=== PATIENT | male | born 1960 | race Caucasian/White ===

== ENCOUNTER 2017-04-13 00:05 | Inpatient (IN) | payer MEDICAID, OTHER ==
[~2017-04-13] VITALS: Ht 175.3 cm; Wt 94.2 kg
[2017-04-13] VITALS (18 sets, daily range): BP systolic 108–125; BP diastolic 64–74; PULSE 78–100; RESP 15–20; TEMP 100.5; Ht 175.3 cm; Wt 94.2 kg
[2017-04-13] MEDS ORDERED: HYDROmorphONE 1 MG/ML SYG IV STA (01:18)
[2017-04-13] MEDS ORDERED: ONDANSETRON 4 MG INJ IV STA (01:18)
[2017-04-13] MEDS ORDERED: SOD CHLORIDE 0.9% 1,000 ML IV STA (01:18)
[2017-04-13 01:36] LABS: BASOPHILS % 0.2 % (0.0-2.0); HEMATOCRIT 47.6 % (42.0-52.0); HEMOGLOBIN 15.6 g/dl (14.0-18.0); LYMPHOCYTES # 0.8 10^3/ul (0.8-2.9); LYMPHOCYTES % 6.2 % (15.0-51.0); MEAN CORPUSCULAR HEMOGLOBIN 28.1 pg (29.0-33.0); MEAN CORPUSCULAR HGB CONC 32.8 g/dl (32.0-37.0); MEAN CORPUSCULAR VOLUME 85.8 fl (82.0-101.0); MEAN PLATELET VOLUME 10.7 fl (7.4-10.4); MONOCYTE # 0.6 10^3/ul (0.3-0.9); MONOCYTES % 4.8 % (0.0-11.0); NEUTROPHIL # 11.3 10^3/ul (1.6-7.5); NEUTROPHILS % 88.3 % (39.0-77.0); PLATELET COUNT 254 10^3/UL (140-415); RED BLOOD COUNT 5.55 10^6/ul (4.70-6.10); RED CELL DISTRIBUTION WIDTH 13.3 % (11.5-14.5); WHITE BLOOD COUNT 12.8 10^3/ul (4.8-10.8)
[2017-04-13 01:52] LABS: ALBUMIN 4.6 g/dl (3.3-4.9); ALBUMIN/GLOBULIN RATIO 1.06; BILIRUBIN,INDIRECT 1.8 mg/dl (0-1.1); BILIRUBIN,TOTAL 1.8 mg/dl (0.2-1.3); CALCIUM 9.5 mg/dl (8.4-10.2); CREATININE 0.97 mg/dl (0.61-1.24); POTASSIUM 4.4 mmol/L (3.5-5.1); TOTAL PROTEIN 8.9 g/dl (6.1-8.1)
[2017-04-13 02:08] LABS: ADD UMIC YES; UR ASCORBIC ACID NEGATIVE (NEGATIVE); UR BACTERIA FEW /HPF (NONE SEEN); UR BILIRUBIN (Dip) NEGATIVE (NEGATIVE); UR BLOOD (Dip) NEGATIVE (NEGATIVE); UR CLARITY CLEAR (CLEAR); UR COLOR AMBER (YELLOW); UR GLUCOSE (Dip) NEGATIVE (NEGATIVE); UR KETONES (Dip) TRACE mg/dL (NEGATIVE); UR LEUKOCYTE ESTERASE (Dip) NEGATIVE Leu/ul (NEGATIVE); UR MUCUS MANY /HPF (NONE SEEN); UR NITRITE (Dip) NEGATIVE (NEGATIVE); UR RBC 0 /HPF (0-5); UR SPECIFIC GRAVITY (Dip) 1.021 (1.003-1.030); UR TOTAL PROTEIN (Dip) 1+ mg/dl (NEGATIVE); UR UROBILINOGEN (Dip) 1+ mg/dL (NEGATIVE)
--- NOTE | 2017-04-13 02:10 | RADRPT ---
PROCEDURE: CT Abdomen and Pelvis without contrast. CLINICAL INDICATION: Pain. TECHNIQUE: CT scan of the abdomen and pelvis was performed on a multidetector slice CT scanner. No intravenous contrast material was utilized. Sagittal and coronal reformatted images were obtained fr om the axial source images. Images were reviewed on a high-resolution PACS workstation. Exam CTDlvol = 18 mGy and DLP = 1161 Gy-cm. One of the following 3 dose reduction techniques were used: Automate d exposure control; adjustment of the mA and/or kV according to patient size; or use of iterative re construction technique. DICOM images are available. COMPARISON: None. FINDINGS: Appendix is enlarged measuring up to 11 mm diameter thickened amezcua and surrounding fluid and infilt ration. Free fluid extends into the pelvis. There is no definite free intraperitoneal gas. There ar e subcentimeter right abdominal mesenteric lymph nodes. There are scattered air-fluid levels in nond ilated small bowel with slight wall thickening in the right lower quadrant. There are few sigmoid di verticuli without evidence for diverticulitis. . The liver is overall normal in size. No intrahepatic lesions are identified. There is possible gallb ladder sludge. The gallbladder is otherwise normal in appearance. There is no definite biliary ducta l dilation. Pancreas is normal in appearance. The spleen is unremarkable.. There are no adrenal mass es. The aorta is normal caliber. Kidneys are normal in appearance without hydronephrosis, mass or calculus.. Ureters are of normal ca liber and without evidence for an obstructing calculus. The urinary bladder is contracted.. Uterus unremarkable. The ovaries are not well characterized. Limited evaluation of the lung bases is unremarkable. There are degenerative changes of the lumbar spine. IMPRESSION: 1. Acute appendicitis with surrounding fluid and infiltration. Small reactive lymph nodes. 2. Few air-fluid levels wall thickening and distal small bowel in the right lower quadrant, likely reactive changes. No definite obstruction or ileus. 3. Scattered sigmoid colon diverticuli without evidence for diverticulitis. 4. Probable gallbladder sludge. No evidence for biliary obstruction. 5. No obstructive uropathy. Contracted urinary bladder. 6. Degenerative changes of the lower lumbar spine. Findings reported to Dr. Guillen on 04/13/2017 2:06:57 AM. RPTAT: HMVK .Carlos Rivera MD, MD Date Time Electronically viewed and signed by .Carlos Rivera MD, MD on 04/13/2017 02:09 .K/
[2017-04-13] MEDS ORDERED: PIPER-TAZO 3.375 GM IV (PMX) 50 ML IV ONE (02:30)
[2017-04-13] MEDS ORDERED: D5W-0.45 NACL + KCL 20 MEQ 1,000 ML IV SCH (03:41)
[2017-04-13] MEDS ORDERED: ACETAMINOPHEN 325 MG TAB PO PRN ×3 (04:00→13:30)
[2017-04-13] MEDS ORDERED: ONDANSETRON 4 MG INJ IV PRN ×3 (04:00→15:00)
[2017-04-13] MEDS: SOD CHLORIDE 0.9% 1,000 ML IV SCH ×2 (04:07→16:37)
[2017-04-13] MEDS ORDERED: morphine 2 MG INJ IV PRN (04:30)
[2017-04-13] MEDS ORDERED: DOCUSATE SODIUM 100 MG CAP PO PRN (04:30)
[2017-04-13] MEDS ORDERED: BISACODYL (EC) 5 MG TAB PO PRN (04:30)
[2017-04-13] MEDS ORDERED: NACL 0.9% 3 ML SYG IV SCH (04:30)
--- NOTE | 2017-04-13 04:44 | ERD ---
ER Documentation Chief Complaint Chief Complaint c/o abd pain x 1 day. Denies any n/v/d. Tender on RLQ. HPI 56-year-old previously healthy male presenting to the ER with complaints of right lower quadrant pain. The pain started about 24 hours ago. It is constant , aching, radiating to his suprapubic area, with associated nausea but no vomiting. he denies any associated fever but does note that he was sweating earlier today while it was cold outside. Pain is worse with ambulation, somewhat improved with rest. He is having normal bowel movements and passing gas ROS All systems reviewed and are negative except as per history of present illness. Allergies Allergies: Coded Allergies: No Known Allergy (Unverified , 04/13/17) PMhx/Soc Medical and Surgical Hx: pt denies Medical Hx, pt denies Surgical Hx History of Surgery: No Anesthesia Reaction: No Hx Neurological Disorder: No Hx Respiratory Disorders: No Hx Cardiac Disorders: No Hx Psychiatric Problems: No Hx Miscellaneous Medical Probl: No Hx Alcohol Use: No Hx Substance Use: No Hx Tobacco Use: No Smoking Status: Never smoker FmHx Family History: No diabetes Physical Exam Vitals Vital Signs Date Time Temp Pulse Resp B/P Pulse Ox O2 Delivery O2 Flow Rate FiO2 04/13/17 05:41 98.4 106 16 124/89 100 Room Air 04/13/17 03:07 104 16 117/80 99 Room Air 04/13/17 02:16 104 16 126/87 99 Room Air 04/13/17 01:05 98.7 105 20 123/94 99 Room Air 04/13/17 00:11 97.6 104 18 141/87 98 Physical Exam Const: Nontoxic, well-developed, appears to be in distress secondary to pain, no diaphoresis Head: Atraumatic Eyes: Normal Conjunctiva ENT: Normal External Ears, Nose and Mouth. Neck: Full range of motion..~ No meningismus. Resp: Clear to auscultation bilaterally Cardio: Regular rate and rhythm, no murmurs Abd: Soft, right lower quadrant tenderness at McBurney's point with positive guarding, no rebound. Abdomen is distended. Diminished bowel sounds Skin: No petechiae or rashes Back: No midline or flank tenderness Ext: No cyanosis, or edema Neur: Awake and alert Psych: Normal Mood and Affect Result Diagram: 04/13/17 0100 04/13/17 0118 Results 24 hrs Laboratory Tests Test 04/13/17 01:00 04/13/17 01:18 White Blood Count 12.810^3/ul Red Blood Count 5.5510^6/ul Hemoglobin 15.6g/dl Hematocrit 47.6% Mean Corpuscular Volume 85.8fl Mean Corpuscular Hemoglobin 28.1pg Mean Corpuscular Hemoglobin Concent 32.8g/dl Red Cell Distribution Width 13.3% Platelet Count 49697^3/UL Mean Platelet Volume 10.7fl Neutrophils % 88.3% Lymphocytes % 6.2% Monocytes % 4.8% Eosinophils % 0.0% Basophils % 0.2% Nucleated Red Blood Cells % 0.0/100WBC Neutrophils # 11.310^3/ul Lymphocytes # 0.810^3/ul Monocytes # 0.610^3/ul Eosinophils # 0.010^3/ul Basophils # 0.010^3/ul Nucleated Red Blood Cells # 0.010^3/ul Urine Color BLAKE Urine Clarity CLEAR Urine pH 6.0 Urine Specific [place] 1.021 Urine Ketones TRACEmg/dL Urine Nitrite NEGATIVEmg/dL Urine Bilirubin NEGATIVEmg/dL Urine Urobilinogen 1+mg/dL Urine Leukocyte Esterase NEGATIVELeu/ul Urine Microscopic RBC 0/HPF Urine Microscopic WBC 1/HPF Urine Bacteria FEW/HPF Urine Mucus MANY/HPF Urine Hemoglobin NEGATIVEmg/dL Urine Glucose NEGATIVEmg/dL Urine Total Protein 1+mg/dl Sodium Level 141mmol/L Potassium Level 4.4mmol/L Chloride Level 99mmol/L Carbon Dioxide Level 27mmol/L Anion Gap 19 Blood Urea Nitrogen 12mg/dl Creatinine 0.97mg/dl Glucose Level 168mg/dl Calcium Level 9.5mg/dl Total Bilirubin 1.8mg/dl Direct Bilirubin 0.00mg/dl Indirect Bilirubin 1.8mg/dl Aspartate Amino Transf (AST/SGOT) 24IU/L Alanine Aminotransferase (ALT/SGPT) 41IU/L Alkaline Phosphatase 84IU/L Total Protein 8.9g/dl Albumin 4.6g/dl Globulin 4.30g/dl Albumin/Globulin Ratio 1.06 Lipase 27U/L Current Medications Medications (Trade) Dose Ordered Sig/Caro Route PRN Reason Start Time Stop Time Status Last Admin Dose Admin Hydromorphone HCl (Dilaudid) 1 mg ONCE STAT IV 04/13/17 01:18 04/13/17 01:21 DC 04/13/17 02:07 Ondansetron HCl 4 mg 4 mg ONCE STAT IV 04/13/17 01:18 04/13/17 01:21 DC 04/13/17 02:04 Sodium Chloride 1,000 ml @ 1,000 mls/hr Q1H STAT IV 04/13/17 01:18 04/13/17 02:17 DC 04/13/17 02:08 Piperacillin Sod/ Tazobactam Sod 50 ml @ 100 mls/hr ONCE ONCE IV 04/13/17 02:30 04/13/17 02:59 DC 04/13/17 02:50 Potassium Chloride/Dextrose/ Sod Cl (D5-1/2ns + KCl 20 Meq) 1,000 ml @ 125 mls/hr Q8H IV 04/13/17 03:41 04/13/17 11:40 Ondansetron HCl (Zofran Inj) 4 mg BRIDGE ORDER PRN IV NAUSEA AND/OR VOMITING 04/13/17 04:00 04/14/17 03:59 Acetaminophen 650 mg 650 mg ER BRIDGE PRN PO MILD PAIN/FEVER 04/13/17 04:00 04/14/17 03:59 Sodium Chloride (NS) 1,000 ml @ 80 mls/hr [id number] IV 04/13/17 04:07 UNV IV Flush (NS 3 ml) 3 ml PER PROTOCOL IV 04/13/17 04:30 UNV Ondansetron HCl (Zofran Inj) 4 mg Q6H PRN IV NAUSEA AND/OR VOMITING 04/13/17 04:30 UNV Acetaminophen (Tylenol Tab) 650 mg Q6H PRN PO PAIN LEVEL 1-3 OR FEVER 04/13/17 04:30 UNV Morphine Sulfate (morphine) 2 mg Q4H PRN IV SEVERE PAIN LEVEL 7-10 04/13/17 04:30 UNV Docusate Sodium (Colace) 100 mg Q12H PRN PO CONSTIPATION 04/13/17 04:30 UNV Bisacodyl 5 mg 5 mg DAILY PRN PO CONSTIPATION 04/13/17 04:30 UNV Piperacillin Sod/ Tazobactam Sod (Zosyn 3.375gm/ 50 ml (Pmx)) 50 ml @ 100 mls/hr Q6 IVPB 04/13/17 08:30 UNV Procedures/MDM Labs: CBC shows leukocytosis CMP elevated bilirubin, otherwise unremarkable UA: elevated ketones 56-year-old male presenting with right lower quadrant pain and a CT scan showing evidence of acute appendicitis without perforation or abscess. Patient was noted to be afebrile and nontoxic upon arrival. IV fluids were started. Upon diagnosis of appendicitis, Zosyn IV was also started. Patient was kept n.p.o. I spoke with Dr. Lea, the surgeon on-call, who plans on appendectomy. I discussed this with the patient and he is amenable to the plan. All questions were answered. Accepting Care Team: Current data and ongoing care discussed. Time: Time of admission Primary Provider: Alejandro Consulting: Leonora Outstanding Data: none Departure Diagnosis: Primary Impression: Acute appendicitis Acute appendicitis type: with localized peritonitis Qualified Code: K35.3 - Acute appendicitis with localized peritonitis Condition: Serious ALICJA COSTELLO MD Apr 13, 2017 04:44
--- NOTE | 2017-04-13 06:33 | HP ---
Date/Time of Note Date/Time of Note DATE: 04/13/17 TIME: 06:23 Assessment/Plan VTE Prophylaxis VTE Prophylaxis Intervention: SCD's Assessment/Plan Chief Complaint/Hosp Course This is a 56-year-old male who is being being admitted to the [facility] floor for: #1 acute appendicitis: Keep the patient n.p.o., normal saline for IV fluid hydration, prophylactic antibiotics, morphine for IV pain control, Zofran for nausea, general surgery on-call Dr. Lea was consulted. Will await further recommendations as per general surgery. #2 obesity: We will check hemoglobin A1c, TSH, lipid panel #3 DVT GI prophylaxis: SCDs, no GI prophylaxis indicated Further treatment strategy will be implemented as per the clinical course Problems: HPI/ROS Admit Date/Time Admit Date/Time Hx of Present Illness Chief complaint right lower quadrant pain This is a 56-year-old male who presented to the ED with right lower quadrant pain that started yesterday. Patient states that the pain occurred on the right lower quadrant. It was sharp in nature and 10 out of 10 in intensity. He stated he had nausea but no vomiting. He denies any fevers. He denies feeling similar symptoms before. Allergies: NKDA Medications: None ROS Const: As per HPI Eyes : No pain discharge or redness or change in visual acuity ENT: No pain, sore throat, congestion, congestion, dysphagia or discharge Respiratory: No shortness of breath, cough, sputum, wheezing, or pleuritic pain Cardiovascular: No chest pain, palpitation, PND, or edema GI : As per HPI Genitourinary: No dysuria, hematuria, flank pain , discharge or CVA tenderness Musculoskeletal: No joint pain, back pain, neck pain, restricted range of motion in neck or joints Skin: No rash, bruising or hives Neuro: No headache, dizziness, syncope, seizure, focal weakness Endocrine: No polyuria, polydipsia, temperature intolerance Psych: No hallucination, depression, anxiety or suicidal ideation PMH/Family/Social Past Medical History Medical History: no pertinent history Past Surgical History Past Surgical Hx: no surgical history Family History Significant Family History: no pertinent family hx Social History Alcohol Use: none Smoking Status: Never smoker Drug Use: none Exam/Review of Systems Vital Signs Vitals Vital Signs Date Time Temp Pulse Resp B/P Pulse Ox O2 Delivery O2 Flow Rate FiO2 04/13/17 05:41 98.4 106 16 124/89 100 Room Air Exam Exam General: Patient is currently lying in bed in no acute distress HEENT: Atraumatic, normocephalic. The pupils are equal, round and reactive. Extraocular motor are intact Neck: Supple with full range of motion. No rigidity or meningismus Chest: Nontender Lungs: Clear to auscultation bilaterally no crackles rales or wheezing Heart: Normal S1-S2, Regular rhythm and rate. No murmur, S3, or S4 Abdomen: Soft, tenderness to palpation across the lower abdominal quadrants with right greater than left, normal bowel sounds Extremities: Normal to inspection, no edema no cyanosis Neurologic: Normal mental status, speech normal, cranial nerves II through XII are intact, motor and sensory are intact, no focal weakness Skin: Vitiligo of the bilateral hands Additional Comments PROCEDURE: CT Abdomen and Pelvis without contrast. CLINICAL INDICATION: Pain. TECHNIQUE: CT scan of the abdomen and pelvis was performed on a multidetector slice CT scanner. No intravenous contrast material was utilized. Sagittal and coronal reformatted images were obtained from the axial source images. Images were reviewed on a high-resolution PACS workstation. Exam CTDlvol = 18 mGy and DLP = 1161 Gy-cm. One of the following 3 dose reduction techniques were used: Automated exposure control; adjustment of the mA and/or kV according to patient size; or use of iterative reconstruction technique. DICOM images are available. COMPARISON: None. FINDINGS: Appendix is enlarged measuring up to 11 mm diameter thickened amezcua and surrounding fluid and infiltration. Free fluid extends into the pelvis. There is no definite free intraperitoneal gas. There are subcentimeter right abdominal mesenteric lymph nodes. There are scattered air-fluid levels in nondilated small bowel with slight wall thickening in the right lower quadrant. There are few sigmoid diverticuli without evidence for diverticulitis. . The liver is overall normal in size. No intrahepatic lesions are identified. There is possible gallbladder sludge. The gallbladder is otherwise normal in appearance. There is no definite biliary ductal dilation. Pancreas is normal in appearance. The spleen is unremarkable.. There are no adrenal masses. The aorta is normal caliber. Kidneys are normal in appearance without hydronephrosis, mass or calculus.. Ureters are of normal caliber and without evidence for an obstructing calculus. The urinary bladder is contracted.. Uterus unremarkable. The ovaries are not well characterized. Limited evaluation of the lung bases is unremarkable. There are degenerative changes of the lumbar spine. IMPRESSION: 1. Acute appendicitis with surrounding fluid and infiltration. Small reactive lymph nodes. 2. Few air-fluid levels wall thickening and distal small bowel in the right lower quadrant, likely reactive changes. No definite obstruction or ileus. 3. Scattered sigmoid colon diverticuli without evidence for diverticulitis. 4. Probable gallbladder sludge. No evidence for biliary obstruction. 5. No obstructive uropathy. Contracted urinary bladder. 6. Degenerative changes of the lower lumbar spine. Findings reported to Dr. Guillen on 04/13/2017 2:06:57 AM. RPTAT: HMVK .Carlos Rivera MD, Date Time Electronically viewed and signed by .Carlos Rivera MD, MD on 04/13/2017 02:09 .K/ CC: ALICJA GUILLEN MD Labs Result Diagram: 04/13/17 0100 04/13/17 0118 Medications Medications Current Medications Potassium Chloride/Dextrose/ Sod Cl 1,000 ml @ 125 mls/hr Q8H IV ; Start 04/13 at 03:41; Stop 04/13/17 at 11:40 Sodium Chloride (NS) 1,000 ml @ 80 mls/hr [id number] IV ; Start 04/13/17 at 04:07 ; Status UNV Ondansetron HCl (Zofran Inj) 4 mg Q6H PRN IV NAUSEA AND/OR VOMITING; Start at 04:30; Status UNV Acetaminophen (Tylenol Tab) 650 mg Q6H PRN PO PAIN LEVEL 1-3 OR FEVER; Start 04/13/17 at 04:30; Status UNV Morphine Sulfate (morphine) 2 mg Q4H PRN IV SEVERE PAIN LEVEL 7-10; Start at 04:30; Status UNV Docusate Sodium (Colace) 100 mg Q12H PRN PO CONSTIPATION; Start 04/13/17 at 04 :30; Status UNV Bisacodyl 5 mg 5 mg DAILY PRN PO CONSTIPATION; Start 04/13/17 at 04:30; Status UNV Piperacillin Sod/ Tazobactam Sod (Zosyn 3.375gm/ 50 ml (Pmx)) 50 ml @ 100 mls/ hr Q6 IVPB ; Start 04/13/17 at 08:30; Status UNV JYOTSNA POSADA Apr 13, 2017 06:33
[2017-04-13] MEDS: PIPER-TAZO 3.375 GM IV (PMX) 50 ML IVPB SCH ×4 (08:20→23:37)
--- NOTE | 2017-04-13 11:57 | QN ---
Documentation Comment Examined patient in ER room 5. He is doing well. Having pain on right upper and lower quadrant. Remains afebrile. Pending surgery evaluation. Follow-up with surgery recommendations. Patient was seen in collaboration with . JOSE J RODRIGUEZ NP Apr 13, 2017 11:57
[2017-04-13] MEDS ORDERED: ROCURONIUM 50 MG INJ ONE (13:15)
[2017-04-13] MEDS ORDERED: PROPOFOL 20 ML ONE (13:15)
[2017-04-13] MEDS ORDERED: ONDANSETRON 4 MG INJ ONE (13:15)
[2017-04-13] MEDS ORDERED: NEOSTIGMINE 3 MG/3 ML SYRINGE ONE (13:15)
[2017-04-13] MEDS ORDERED: GLYCOPYRROLATE 0.4 MG INJ ONE (13:15)
[2017-04-13] MEDS ORDERED: METOCLOPRAMIDE 10 MG INJ ONE (13:16)
[2017-04-13] MEDS ORDERED: KETOROLAC 30 MG INJ ONE (13:16)
[2017-04-13] MEDS ORDERED: ROPIVACAINE 0.5 % 30 ML VIAL ONE (13:16)
[2017-04-13] MEDS ORDERED: MIDAZOLAM 1 MG/ML 2 ML INJ ONE (13:16)
--- NOTE | 2017-04-13 13:16 | CONS ---
Date/Time of Note Date/Time of Note DATE: 04/13/17 TIME: 13:13 Assessment/Plan Assessment/Plan Additional Assessment/Plan Acute appendicitis I discussed laparoscopic, possible open, appendectomy with the patient. All benefits, risks, alternatives discussed in detail. All questions answered. The patient elects to proceed. Consultation Date/Type/Reason Admit Date/Time Date of Consultation: Apr 13, 2017 Hx of Present Illness The patient is a 56-year-old male with 2 day history of abdominal pain. He thought he was likely having gastroenteritis. However, he was driving his merline up to [place] last night had to boat puller the side of the road to do severe lower abdominal pain. He had nausea but no emesis. Past Medical History Medical History: no pertinent history Past Surgical History Past Surgical Hx: no surgical history Family History Significant Family History: no pertinent family hx Social History Alcohol Use: none Smoking Status: Never smoker Drug Use: none Exam/Review of Systems Vital Signs Vitals Vital Signs Date Time Temp Pulse Resp B/P Pulse Ox O2 Delivery O2 Flow Rate FiO2 04/13/17 12:34 100.5 120 20 119/87 96 Room Air Exam Constitutional: alert, oriented, well developed Psych: nl mood/affect, no complaints Head: normocephalic Eyes: nl conjunctiva ENMT: nl external ears & nose Neck: supple Respiratory: clear to auscultation Cardiovascular: regular rate and rhythm Gastrointestinal: other (Significant pelvic tenderness), soft Extremities: normal pulses Neurological: GAS STATION ATTENDANT II-XII intact Skin: nl turgor Results Result Diagram: 04/13/17 0100 04/13/17 0118 Results 24 hrs Laboratory Tests Test 04/13/17 01:00 04/13/17 01:18 White Blood Count 12.8 H Red Blood Count 5.55 Hemoglobin 15.6 Hematocrit 47.6 Mean Corpuscular Volume 85.8 Mean Corpuscular Hemoglobin 28.1 L Mean Corpuscular Hemoglobin Concent 32.8 Red Cell Distribution Width 13.3 Platelet Count 254 Mean Platelet Volume 10.7 H Neutrophils % 88.3 H Lymphocytes % 6.2 L Monocytes % 4.8 Eosinophils % 0.0 Basophils % 0.2 Nucleated Red Blood Cells % 0.0 Neutrophils # 11.3 H Lymphocytes # 0.8 Monocytes # 0.6 Eosinophils # 0.0 Basophils # 0.0 Nucleated Red Blood Cells # 0.0 Urine Color BLAKE Urine Clarity CLEAR Urine pH 6.0 Urine Specific [place] 1.021 Urine Ketones TRACE A Urine Nitrite NEGATIVE Urine Bilirubin NEGATIVE Urine Urobilinogen 1+ H Urine Leukocyte Esterase NEGATIVE Urine Microscopic RBC 0 Urine Microscopic WBC 1 Urine Bacteria FEW A Urine Mucus MANY A Urine Hemoglobin NEGATIVE Urine Glucose NEGATIVE Urine Total Protein 1+ H Sodium Level 141 Potassium Level 4.4 Chloride Level 99 Carbon Dioxide Level 27 Anion Gap 19 H Blood Urea Nitrogen 12 Creatinine 0.97 Glucose Level 168 Calcium Level 9.5 Total Bilirubin 1.8 H Direct Bilirubin 0.00 Indirect Bilirubin 1.8 H Aspartate Amino Transf (AST/SGOT) 24 Alanine Aminotransferase (ALT/SGPT) 41 Alkaline Phosphatase 84 Total Protein 8.9 H Albumin 4.6 Globulin 4.30 H Albumin/Globulin Ratio 1.06 Lipase 27 Imaging Free Text/Dictation Patient: OXANA WHITE : 1960 Age: 56 Sex: M MR #: [id number] DOS: 04/13/17 0118 Ordering MD: ALICJA GUILLEN MD Location: E/R Room/Bed: PROCEDURE: CT Abdomen and Pelvis without contrast. CLINICAL INDICATION: Pain. TECHNIQUE: CT scan of the abdomen and pelvis was performed on a multidetector slice CT scanner. No intravenous contrast material was utilized. Sagittal and coronal reformatted images were obtained from the axial source images. Images were reviewed on a high-resolution PACS workstation. Exam CTDlvol = 18 mGy and DLP = 1161 Gy-cm. One of the following 3 dose reduction techniques were used: Automated exposure control; adjustment of the mA and/or kV according to patient size; or use of iterative reconstruction technique. DICOM images are available. COMPARISON: None. FINDINGS: Appendix is enlarged measuring up to 11 mm diameter thickened amezcua and surrounding fluid and infiltration. Free fluid extends into the pelvis. There is no definite free intraperitoneal gas. There are subcentimeter right abdominal mesenteric lymph nodes. There are scattered air-fluid levels in nondilated small bowel with slight wall thickening in the right lower quadrant. There are few sigmoid diverticuli without evidence for diverticulitis. . The liver is overall normal in size. No intrahepatic lesions are identified. There is possible gallbladder sludge. The gallbladder is otherwise normal in appearance. There is no definite biliary ductal dilation. Pancreas is normal in appearance. The spleen is unremarkable.. There are no adrenal masses. The aorta is normal caliber. Kidneys are normal in appearance without hydronephrosis, mass or calculus.. Ureters are of normal caliber and without evidence for an obstructing calculus. The urinary bladder is contracted.. Uterus unremarkable. The ovaries are not well characterized. Limited evaluation of the lung bases is unremarkable. There are degenerative changes of the lumbar spine. IMPRESSION: 1. Acute appendicitis with surrounding fluid and infiltration. Small reactive lymph nodes. 2. Few air-fluid levels wall thickening and distal small bowel in the right lower quadrant, likely reactive changes. No definite obstruction or ileus. 3. Scattered sigmoid colon diverticuli without evidence for diverticulitis. 4. Probable gallbladder sludge. No evidence for biliary obstruction. 5. No obstructive uropathy. Contracted urinary bladder. 6. Degenerative changes of the lower lumbar spine. Findings reported to Dr. Guillen on 04/13/2017 2:06:57 AM. RPTAT: HMVK Medications Medications Current Medications Sodium Chloride (NS) 1,000 ml @ 80 mls/hr [id number] IV ; Start 04/13/17 at 04:07 Ondansetron HCl (Zofran Inj) 4 mg Q6H PRN IV NAUSEA AND/OR VOMITING; Start at 04:30 Acetaminophen (Tylenol Tab) 650 mg Q6H PRN PO PAIN LEVEL 1-3 OR FEVER; Start 04/13/17 at 04:30 Morphine Sulfate (morphine) 2 mg Q4H PRN IV SEVERE PAIN LEVEL 7-10; Start at 04:30 Docusate Sodium (Colace) 100 mg Q12H PRN PO CONSTIPATION; Start 04/13/17 at 04 :30 Bisacodyl 5 mg 5 mg DAILY PRN PO CONSTIPATION; Start 04/13/17 at 04:30 Piperacillin Sod/ Tazobactam Sod (Zosyn 3.375gm/ 50 ml (Pmx)) 50 ml @ 100 mls/ hr Q6 IVPB Last administered on 04/13/17 08:20; Admin Dose 100 MLS/HR; Start 04/13/17 at 08:30 CINTHIA FOREMAN MD Apr 13, 2017 13:15
--- NOTE | 2017-04-13 13:17 | SIPON ---
Date/Time of Note Date/Time of Note DATE: 04/13/17 TIME: 13:16 Operative Report Preoperative Diagnosis Acute appendicitis Postoperative Diagnosis Acute perforated appendicitis Operation/Procedure Performed Laparoscopic appendectomy Surgeon see signature line collections assistant None Anesthesia: general Estimated blood loss: minimal Transfusion Required none Specimen Appendix Grafts/Implants 18 [place] round [place] drain in the pelvis Complications none CINTHIA FOREMAN MD Apr 13, 2017 13:17
--- NOTE | 2017-04-13 13:18 | OPR ---
Date/Time of Note Date/Time of Note DATE: 04/13/17 TIME: 13:17 Operative Report Procedure Date: Apr 13, 2017 Preoperative Diagnosis Acute appendicitis Postoperative Diagnosis Acute perforated appendicitis Operation/Procedure Performed Laparoscopic appendectomy Surgeon see signature line Environmental Compliance Specialist None Anesthesia Type: general Anesthesiologist: MAIRA STRATTON MD Estimated Blood Loss: minimal Transfusion none Specimen Appendix Grafts/Implants none Tubes/Drains 19 Belgian round Otis in the right lower quadrant Complications none Pt Condition Post Procedure: stable Disposition: PACU Indications The patient is a 56-year-old male with a acute onset of generalized abdominal pain, localizing to the right lower quadrant. He presented to the ER and was diagnosed with acute appendicitis. I discussed laparoscopic, possible open appendectomy with the patient. All benefits, risks, alternatives discussed in detail. All questions answered. The patient elected to proceed. Procedure Description The patient was brought to operative room placed supine on the table. After preop antibiotics and SCDs were applied, the patient was intubated and the abdomen was cleaned, prepped, and draped in usual sterile fashion. All incisions were infiltrated with 1 spotting with epi house Marcaine prior to incision. A 5 mm incision was made in the umbilicus. Using a 5 minute laparoscopic containing trocar, the abdomen was entered direct vision insufflated to 15 mm of CO2. Under direct vision, the following trochars were placed: A 5 mm right lower quadrant and a left lower quadrant 12 mm. There was a fair amount of fibrinous exudate in the right upper quadrant as well as the right lower quadrant. The omentum was adherent to the right lower quadrant and the omentum was bluntly dissected from the right lower quadrant. There was an obvious abscess cavity and at this point I visualized the appendix. It was consistent with acute perforated appendicitis. I made a rent in the mesentery to base the appendix divided the cecum at the base of the appendix with a 35 mm Endo linear cutter white load. The appendiceal mesentery was then divided with a 35 mm Endo linear cutter white load. The appendix was then removed the 12 mm trocar site. I visualized my staple lines. I then turned my attention to the pelvis and the right lower quadrant.. I copiously irrigated out the right lower quadrant and pelvis until effluent was clear. Under direct vision, I placed a 19 Belgian round Otis drain in the pelvis and right lower quadrant. This exited through the right lower quadrant trocar site and was sutured to the skin with a 2-0 nylon. I desufflated the abdomen moved all trochars. The fascia of the 12 mm trocar site was closed with 0 Vicryl using an Endo Close device and direct vision.. Skin incisions were all closed with 4 Monocryl, Mastisol, and Steri-Strips. The patient tolerated the procedure well, was extubated in the OR, transferred to the recovery room stable condition. CINTHIA FOREMAN MD Apr 13, 2017 13:18
[2017-04-13] MEDS: KETOROLAC 15 MG INJ IV SCH ×2 (13:30→20:42)
[2017-04-13] MEDS ORDERED: METOCLOPRAMIDE 10 MG INJ IV PRN (13:30)
[2017-04-13] MEDS ORDERED: FENTAnyl 50 MCG/ML VIAL ONE (13:34)
[2017-04-13] MEDS ORDERED: LIDOCAINE 1%/EPI 30 ML INJ ONE (13:39)
[2017-04-13] MEDS ORDERED: BUPIVACAINE 0.25%/EPI (SDV) 30 ML INJ ONE (13:39)
[2017-04-13] MEDS ORDERED: PHENYLephrine (100 MCG/ML) 5ML SYG ONE (13:43)
[2017-04-13] MEDS ORDERED: ACETAMINOPHEN 1000MG/100ML IV 100 ML ONE (13:49)
[2017-04-13] MEDS ORDERED: DIPHENHYDRAMINE 50 MG INJ IV PRN (15:00)
[2017-04-13] MEDS ORDERED: HYDROmorphONE (0.2 MG/ML) 10ML SYG IV PRN ×3 (15:00)
[2017-04-13] MEDS ORDERED: MEPERIDINE 25 MG INJ IV PRN (15:00)
[2017-04-13] MEDS ORDERED: PIPER-TAZO 3.375 GM IV (PMX) 50 ML IVPB SCH (18:00)
[2017-04-13] MEDS: D5-NS + KCL 20 MEQ 1,000 ML IV SCH ×2 (18:04→23:21)
[2017-04-14 00:30] VITALS: BP 116/75; RESP 19
[2017-04-14] MEDS: KETOROLAC 15 MG INJ IV SCH ×4 (01:14→20:10)
[2017-04-14 05:00] VITALS: BP 118/73; PULSE 86; RESP 18
[2017-04-14] MEDS: SOD CHLORIDE 0.9% 1,000 ML IV SCH ×2 (05:07→17:37)
[2017-04-14 05:24] LABS: BASOPHILS % 0.2 % (0.0-2.0); EOSINOPHILS % 0.2 % (0.0-7.0); HEMOGLOBIN 13.2 g/dl (14.0-18.0); LYMPHOCYTES % 7.7 % (15.0-51.0); MEAN CORPUSCULAR HEMOGLOBIN 29.1 pg (29.0-33.0); MEAN CORPUSCULAR HGB CONC 33.8 g/dl (32.0-37.0); MEAN CORPUSCULAR VOLUME 85.9 fl (82.0-101.0); MEAN PLATELET VOLUME 10.9 fl (7.4-10.4); MONOCYTE # 0.4 10^3/ul (0.3-0.9); MONOCYTES % 3.4 % (0.0-11.0); PLATELET COUNT 205 10^3/UL (140-415); RED BLOOD COUNT 4.54 10^6/ul (4.70-6.10); RED CELL DISTRIBUTION WIDTH 14.1 % (11.5-14.5); WHITE BLOOD COUNT 12.5 10^3/ul (4.8-10.8)
[2017-04-14] MEDS: PIPER-TAZO 3.375 GM IV (PMX) 50 ML IVPB SCH ×4 (05:35→23:53)
[2017-04-14] MEDS: D5-NS + KCL 20 MEQ 1,000 ML IV SCH ×3 (05:35→20:10)
[2017-04-14 06:15] LABS: ALBUMIN 3.4 g/dl (3.3-4.9); ALBUMIN/GLOBULIN RATIO 0.91; BILIRUBIN,DIRECT 1.9 mg/dl (0.00-0.20); BILIRUBIN,TOTAL 3.9 mg/dl (0.2-1.3); CALCIUM 8.3 mg/dl (8.4-10.2); CREATININE 0.92 mg/dl (0.61-1.24); POTASSIUM 3.8 mmol/L (3.5-5.1); TOTAL PROTEIN 7.1 g/dl (6.1-8.1)
[2017-04-14] MEDS: ENOXAPARIN 40 MG/0.4 ML SYG SC SCH (06:16)
[2017-04-14 06:38] LABS: THYROID STIMULATING HORMONE 1.28 MIU/L (0.465-4.680)
[2017-04-14 08:07] VITALS: BP 121/73; RESP 20
--- NOTE | 2017-04-14 14:20 | PN ---
Date/Time of Note Date/Time of Note DATE: 04/14/17 TIME: 14:19 Assessment/Plan VTE Prophylaxis VTE Prophylaxis Intervention: anti-embolic stocking Lines/Catheters IV Catheter Type (from Nrsg): Peripheral IV Assessment/Plan Problems: (1) Acute appendicitis Status: Acute Comment: He is stable postop. Discharge planning as per Dr. Lea the surgeon. Qualifiers: Acute appendicitis type: with localized peritonitis Qualified Code: K35.3 - Acute appendicitis with localized peritonitis (2) Primary vitiligo Status: Chronic Comment: Noted. Subjective 24 Hr Interval Summary Free Text/Dictation Patient sitting up in chair and has consumed a clear liquid lunch without issues. He does note some modest pain with moving around Constitutional: no complaints (No fevers chills or sweats) Respiratory: no complaints Cardiovascular: no complaints Gastrointestinal: pain Exam/Review of Systems Vital Signs Vitals Vital Signs Date Time Temp Pulse Resp B/P Pulse Ox O2 Delivery O2 Flow Rate FiO2 04/14/17 08:07 97.2 94 20 121/73 94 04/14/17 05:00 Nasal Cannula 2.0 Intake and Output 04/13/17 04/13/17 04/14/17 15:00 23:00 07:00 Intake Total 1000 ml 1850 ml Output Total 10 ml 50 ml 1220 ml Balance 990 ml -50 ml 630 ml Exam Constitutional: alert, oriented Neck: non-tender, supple Respiratory: clear to auscultation, normal air movement Cardiovascular: nl pulses, regular rate and rhythm Results Result Diagram: 04/14/17 0432 04/14/17 0433 Results 24 hrs Laboratory Tests Test 04/14/17 04:32 04/14/17 04:33 White Blood Count 12.5 H Red Blood Count 4.54 L Hemoglobin 13.2 L Hematocrit 39.0 L Mean Corpuscular Volume 85.9 Mean Corpuscular Hemoglobin 29.1 Mean Corpuscular Hemoglobin Concent 33.8 Red Cell Distribution Width 14.1 Platelet Count 205 Mean Platelet Volume 10.9 H Neutrophils % 88.0 H Lymphocytes % 7.7 L Monocytes % 3.4 Eosinophils % 0.2 Basophils % 0.2 Nucleated Red Blood Cells % 0.0 Neutrophils # 11.0 H Lymphocytes # 1.0 Monocytes # 0.4 Eosinophils # 0.0 Basophils # 0.0 Nucleated Red Blood Cells # 0.0 Hemoglobin A1c 5.8 Sodium Level 140 Potassium Level 3.8 Chloride Level 106 Carbon Dioxide Level 25 Anion Gap 13 Blood Urea Nitrogen 16 Creatinine 0.92 Glucose Level 158 Calcium Level 8.3 L Total Bilirubin 3.9 #H Direct Bilirubin 1.90 #H Indirect Bilirubin 2.0 H Aspartate Amino Transf (AST/SGOT) 18 Alanine Aminotransferase (ALT/SGPT) 30 Alkaline Phosphatase 71 Total Protein 7.1 # Albumin 3.4 # Globulin 3.70 H Albumin/Globulin Ratio 0.91 Triglycerides Level 113 Cholesterol Level 137 LDL Cholesterol, Calculated 87 HDL Cholesterol 27 L Cholesterol/HDL Ratio 5.0 Thyroid Stimulating Hormone (TSH) 1.280 Medications Medications Current Medications Sodium Chloride (NS) 1,000 ml @ 80 mls/hr [id number] IV ; Start 04/13/17 at 04:07 Ondansetron HCl (Zofran Inj) 4 mg Q6H PRN IV NAUSEA AND/OR VOMITING; Start at 04:30 Acetaminophen (Tylenol Tab) 650 mg Q6H PRN PO PAIN LEVEL 1-3 OR FEVER; Start 04/13/17 at 04:30 Morphine Sulfate (morphine) 2 mg Q4H PRN IV SEVERE PAIN LEVEL 7-10 Last administered on 04/14/17 05:35; Admin Dose 2 MG; Start 04/13/17 at 04:30 Docusate Sodium (Colace) 100 mg Q12H PRN PO CONSTIPATION; Start 04/13/17 at 04 :30 Bisacodyl 5 mg 5 mg DAILY PRN PO CONSTIPATION; Start 04/13/17 at 04:30 Piperacillin Sod/ Tazobactam Sod (Zosyn 3.375gm/ 50 ml (Pmx)) 50 ml @ 100 mls/ hr Q6 IVPB Last administered on 04/14/17 12:43; Admin Dose 100 MLS/HR; Start 04/13/17 at 08:30 Metoclopramide HCl (Reglan) 10 mg Q6H PRN IV NAUSEA AND/OR VOMITING; Start at 13:30 Acetaminophen (Tylenol Tab) 650 mg Q6H PRN PO PAIN LEVEL 1-3 OR FEVER; Start 04/13/17 at 13:30 Ibuprofen (Motrin) 600 mg Q6H PRN PO PAIN LEVEL 1-3; Start 12/17/17 at 08:00 Ketorolac Tromethamine 15 mg 15 mg Q6H IV Last administered on 04/14/17 12:43 ; Admin Dose 15 MG; Start 04/13/17 at 13:30; Stop 04/15/17 at 07:31 Potassium Chloride/Dextrose/ Sod Cl (D5-NS + KCl 20 Meq) 1,000 ml @ 100 mls/hr Q10H IV Last administered on 04/14/17 05:35; Admin Dose 100 MLS/HR; Start at 13:21 Enoxaparin Sodium (Lovenox) 40 mg DAILY@07 SC Last administered on 04/14/17 06:16; Admin Dose 40 MG; Start 04/14/17 at 07:00 Influenza Virus Vaccine (Fluzone) 0.5 ml ONCE ONCE IM* ; Start 04/16/17 at 09: 00; Stop 04/16/17 at 09:01 ALVARO FLORENTINO MD Apr 14, 2017 14:20
[2017-04-14 15:24] VITALS: BP 120/80; RESP 18
[2017-04-14 20:11] VITALS: BP 122/84; RESP 18
[2017-04-15] MEDS: KETOROLAC 15 MG INJ IV SCH ×2 (01:13→08:11)
[2017-04-15 02:00] VITALS: BP 119/79; RESP 18
[2017-04-15] MEDS: D5-NS + KCL 20 MEQ 1,000 ML IV SCH (05:21)
[2017-04-15] MEDS: PIPER-TAZO 3.375 GM IV (PMX) 50 ML IVPB SCH ×2 (05:25→12:42)
[2017-04-15] MEDS: SOD CHLORIDE 0.9% 1,000 ML IV SCH (05:39)
[2017-04-15] MEDS: ENOXAPARIN 40 MG/0.4 ML SYG SC SCH (06:50)
--- NOTE | 2017-04-15 07:30 | PN ---
Date/Time of Note Date/Time of Note DATE: 04/15/17 TIME: 07:29 Assessment/Plan Lines/Catheters IV Catheter Type (from Nrs): Peripheral IV Assessment/Plan Chief Complaint/Hosp Course Postop day #2 from lap appendectomy for perforated appendicitis Patient has had resumption of bowel function. Afebrile since surgery Okay from discharge from surgical standpoint on oral antibiotics. Given prescription for Levaquin and Flagyl To follow-up in my office in 2 weeks for drain removal Problems: Subjective 24 Hr Interval Summary Constitutional: BM, ambulates, flatus, improved, no complaints Feeding: advancing diet Pain Control: well controlled Exam/Review of Systems Vital Signs Vitals Vital Signs Date Time Temp Pulse Resp B/P Pulse Ox O2 Delivery O2 Flow Rate FiO2 04/15/17 02:00 98.0 95 18 119/79 95 04/14/17 05:00 Nasal Cannula 2.0 Intake and Output 04/14/17 04/14/17 04/15/17 15:00 23:00 07:00 Intake Total 50 ml 2110 ml 1550 ml Output Total 710 ml 1030 ml Balance 50 ml 1400 ml 520 ml Exam ENMT: nl external ears & nose Neck: supple Respiratory: clear to auscultation Cardiovascular: regular rate and rhythm Gastrointestinal: non-tender, other (KEYSHA with serosanguineous drainage), soft Results Result Diagram: 04/14/17 0432 04/14/17 0433 CINTHIA FOREMAN MD Apr 15, 2017 07:30
[2017-04-15] MEDS ORDERED: IBUPROFEN 600 MG TAB PO PRN (08:00)
--- NOTE | 2017-04-15 08:26 | DS ---
Date/Time of Note Date/Time of Note DATE: 04/15/17 TIME: 08:22 Discharge Summary Admission/Discharge Info Admit Date/Time Apr 13, 2017 at 03:43 Discharge Date/Time April 15, 2017 Discharge Diagnosis Acute appendicitis perforated; Gilbert's syndrome; obesity Patient Condition: Fair Consults General surgery-Dr. Lea Procedures Operative Report Procedure Date: Apr 13, 2017 Preoperative Diagnosis Acute appendicitis Postoperative Diagnosis Acute perforated appendicitis Operation/Procedure Performed Laparoscopic appendectomy CT scan abdomen and pelvis IMPRESSION: 1. Acute appendicitis with surrounding fluid and infiltration. Small reactive lymph nodes. 2. Few air-fluid levels wall thickening and distal small bowel in the right lower quadrant, likely reactive changes. No definite obstruction or ileus. 3. Scattered sigmoid colon diverticuli without evidence for diverticulitis. 4. Probable gallbladder sludge. No evidence for biliary obstruction. 5. No obstructive uropathy. Contracted urinary bladder. 6. Degenerative changes of the lower lumbar spine. Hx of Present Illness Hx of Present Illness Chief complaint right lower quadrant pain This is a 56-year-old male who presented to the ED with right lower quadrant pain that started yesterday. Patient states that the pain occurred on the right lower quadrant. It was sharp in nature and 10 out of 10 in intensity. He stated he had nausea but no vomiting. He denies any fevers. He denies feeling similar symptoms before. Allergies: NKDA Medications: None Hospital Course [facility] 56-year-old gentleman () admitted with a right lower quadrant pain. He was taken to the operating room promptly and had laparoscopic repair of a perforated appendix requiring a drain placement. He has been stable under observation on antibiotics. He is now discharged home in remarkably improved condition as compared to the time of admission. His rehabilitation potential is good he has no known communicable diseases he is not a hazard to himself or others. He will follow-up with the operative surgeon in 1 week. Please note he has not had any review of systems abnormalities to point toward any type of biliary issues. He does however have Gilbert's syndrome Home Meds No Active Prescriptions or Reported Meds Follow-up Plan Dr. Lea in 1 week Primary Care Provider Care Physician No Primary Time spent on discharge: > 30 minutes ALVARO FLORENTINO MD Apr 15, 2017 08:26
--- NOTE | 2017-04-15 08:27 | PDOCDIS ---
Discharge Instructions DIAGNOSIS Discharge Diagnosis Acute appendicitis perforated; Gilbert's syndrome; obesity CONDITION Patient Condition: Fair HOME CARE INSTRUCTIONS: Diet Instructions: Reduced Calorie ACTIVITY: Activity Restrictions: Slowly Increase Activity Avoid heavy lifting Do not operate Machinery Do not operate Power Tool FOLLOW UP/APPOINTMENTS Follow-up Plan Dr. Lea in 1 week ALVARO FLORENTINO MD Apr 15, 2017 08:27
[2017-04-15] MEDS ORDERED: ACET325T33 PO (08:29)
[2017-04-15] MEDS ORDERED: METR500T14 PO (08:29)
[2017-04-15] MEDS ORDERED: LEVO500S PO (08:29)
[2017-04-15 14:24] VITALS: BP 121/81; RESP 18
[2017-04-16] MEDS ORDERED: INFLUENZA VIRUS VACCINE 0.5 ML (DISPENSING) IM* ONE (09:00)
== END 2017-04-15 15:20 | disposition home or self-care (01) | DRG 340 ==
LOC: E/R 00:05 → MS1 03:43
PROVIDERS: ADMIT Family Medicine; ATTEND Family Medicine
PROC: 0DTJ4ZZ Resection of Appendix, Percutaneous Endoscopic Approach (ICD-10-PCS; principal; 2017-04-13 13:00)
DX: K35.2 Acute appendicitis with generalized peritonitis (principal); E66.9 Obesity, unspecified; Z68.30 Body mass index [BMI] 30.0-30.9, adult
CPT/HCPCS: 36415; 74176; 80053; 80061; 81001; 83036; 83690; 84443; 85025; 88304; 96374; 96375; J0131; J1170; J1650; J1885; J2250; J2270; J2370; J2405; J2543; J2710; J2765; J2795; J3010; J3480; J7030